=== PATIENT | female | born 1995 | race Caucasian/White ===

== ENCOUNTER 2017-01-03 10:30 | Emergency (ER) | payer OTHER, MEDICAID ==
[~2017-01-03] VITALS: Ht 162.6 cm; Wt 65.0 kg
[2017-01-03 10:38] VITALS: BP 126/91; PULSE 95; RESP 14; TEMP 98.5; O2SAT 97
[2017-01-03] MEDS ORDERED: IBUP800T23 PO (11:59)
[2017-01-03] MEDS ORDERED: BACL10TA PO (11:59)
[2017-01-03] MEDS ORDERED: ORPHENADRINE INJ 60 MG/2 ML AMP IM ONE (12:00)
[2017-01-03] MEDS ORDERED: KETOROLAC TROMETHAMINE 60 MG/2 ML (IM) VIAL IM ONE (12:00)
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
== END 2017-01-03 12:50 | disposition home or self-care (01) ==
LOC: NEPK 10:30
DX: S39.012A Strain of muscle, fascia and tendon of lower back, initial encounter (principal); V43.52XA Car driver injured in collision with other type car in traffic accident, initial encounter
CPT/HCPCS: 96372; 99284; J1885; J2360